=== PATIENT | male | born 1955 | race Caucasian/White ===

== ENCOUNTER 2021-02-01 21:58 | Emergency (ER) | payer MEDICARE ==
[2021-02-01] MEDS ORDERED: Cephalexin 250 MG CAP ONE ×2 (22:30→23:41)
[2021-02-01] MEDS ORDERED: Lidocaine 2% 20 ml MDV ONE (22:30)
[2021-02-01] MEDS ORDERED: Bacitracin 1 PK ONE (23:20)
[2021-02-01] MEDS ORDERED: traMADol HCl 50 MG TAB ONE (23:40)
[2021-02-01] MEDS ORDERED: Ondansetron ODT 4 MG TAB ONE (23:41)
== END 2021-02-01 23:57 | disposition home or self-care (01) ==
LOC: BURERS 21:58
DX: S02.2XXA Fracture of nasal bones, initial encounter for closed fracture (principal); S01.81XA Laceration without foreign body of other part of head, initial encounter; I10 Essential (primary) hypertension; K21.9 Gastro-esophageal reflux disease without esophagitis; W19.XXXA Unspecified fall, initial encounter
CPT/HCPCS: 12013; 70450; 70486; Q0162